=== PATIENT | female | born 1950 | race Caucasian/White ===

== ENCOUNTER → 2020-07-01 | Outpatient (CLI) | payer OTHER ==
--- NOTE | 2020-07-01 13:04 | RAD ---
EXAM: ABDOMINAL ULTRASOUND. HISTORY: Jaundice. COMPARISON: None. FINDINGS: Sonographic evaluation of the abdomen was performed. The liver appears normal in parenchymal echotexture. There are no focal lesions. Liver measures 13.7 cm. The spleen measures 10.3 cm. Gallbladder is markedly distended but shows no stones or significant sludge. There is no sonographic Robin sign. The common duct measures 15 mm. There is a mass in the distal common bile duct measuring 3.1 cm in diameter, expanding the common bile duct. The right kidney measures 11.1 x 4.7 x 4.3 cm. Cortical thickness and echogenicity are preserved. The re is no hydronephrosis. The left kidney measures 10.6 x 5.0 x 4.1 cm. Cortical thickness and echogen icity are preserved. There is no hydronephrosis. The visualized portions of the abdominal aorta and inferior vena cava are grossly patent and normal i n caliber. IMPRESSION: 1. Obstructing mass in the distal common bile duct measuring 3.1 cm in diameter, resulting in proxima l common bile duct dilation to 15 mm and marked gallbladder distention. Abdominal MRI with MRCP with and without IV contrast is suggested in further evaluation. Discussed with Dr. Dow by telephone at 12:51 PM on 07/01/2020 Electronically signed by: Mani Ramirez MD (07/01/2020 1:01 PM) [id number]
== END ==
LOC: US 11:45
PROVIDERS: ATTEND Family Medicine
DX: K82.8 Other specified diseases of gallbladder (principal); K83.8 Other specified diseases of biliary tract; R17 Unspecified jaundice
CPT/HCPCS: 76700

== ENCOUNTER → 2020-07-12 | Outpatient (CLI) | payer OTHER ==
[~2020-07-12] MED LIST: CRESTOR5 MG PO; ESCITALOPRAM OX10 MG PO; GADOTERATE 5 MMOL/10ML VIAL. IVP ONE; MONT10TA49 PO
--- NOTE | 2020-07-12 17:09 | KCIC ---
Abdominal MRI with MRCP with and without IV contrast. INDICATION: Jaundice and abnormal abdominal sonogram COMPARISON: Complete abdominal ultrasound of 07/01/2020 TECHNIQUE: Multiplanar multisequence MR imaging of the abdomen was performed including T1, T2, stage III state free procession, in and opposed phase T1, diffusion-weighted imaging, and dynamic fat-satur ated postcontrast imaging. Heavily T2-weighted MRCP images were also acquired with 3D maximum intensi ty projection reformatted images performed and reviewed. 16 mL of Clariscan were utilized for the pos tcontrast sequences. FINDINGS: Liver is normal with no loss of signal on opposed phase imaging. The gallbladder remains distended to 4.5 cm diameter and shows no stones, masses, wall thickening, pe richolecystic soft tissue stranding or otherwise abnormal enhancement. Intermediate intensity in the gallbladder and cystic duct contents is compatible with sludge. There is intra and extrahepatic biliary dilation. The cystic duct is difficult to visualize on MRCP i maging due to the sludge build up in the gallbladder that diminishes its conspicuity on fluid sensiti ve sequences but it may insert on the right hepatic duct which appears to have a low insertion slight ly more dilated left hepatic duct. This is best illustrated on image 15 of MRCP series 21. The common bile duct is dilated up to 1.9 cm and tapers progressively caudally in the pancreatic head to occlusion or near occlusion. The mass identified on ultrasound associated with the common bile duct on MRI corresponds with a grad ually enhancing pancreatic head mass measuring 2.7 cm transverse by 3.0 cm AP by 3.9 cm craniocaudal. This mass shows restricted diffusion and is associated with pancreatic ductal dilation, including mi ld dilation of the duct of [place]. Although the tissue planes between this mass and duodenum are effaced and there is some mild mass eff ect on the right aspect of the IVC, no vascular encasement is appreciated. In particular, the celiac axis and its major branch vessels (with the exception of the distal gastroduodenal artery) the SMA, t he portal vein, and the superior mesenteric vein appear uninvolved by this mass. Mild motion artifact degrades fine detail. The remaining solid abdominal organs are unremarkable. There is no abdominal adenopathy, ascites or fluid collection noted. No abnormal enhancement in the bones. Lung bases show minimal atelectasis in the medial right middle lobe. No pleural effusion. Small hiatal hernia. Impression: Abdominal MRI with MRCP reveal a gradually enhancing pancreatic head mass causing biliary and pancrea tic ductal obstruction. This is highly suspicious for a primary pancreatic malignancy. Consider ERCP with endoscopic ultrasound and possible biopsy in further evaluation. CT of the chest abdomen and pel vis with IV contrast (including arterial and venous phase images of the abdomen) may be helpful in as sessing for any clinically relevant additional sites of disease. Electronically signed by: Mani Ramirez MD (07/12/2020 5:06 PM) [id number]
== END ==
LOC: KCIC MRI 07:51
PROVIDERS: ATTEND Family Medicine
DX: K44.9 Diaphragmatic hernia without obstruction or gangrene (principal); K83.8 Other specified diseases of biliary tract; J98.11 Atelectasis; R17 Unspecified jaundice; N32.89 Other specified disorders of bladder
CPT/HCPCS: 74183; A9575